=== PATIENT | male | born 1950 | race Caucasian/White ===

== ENCOUNTER → 2018-02-02 | Outpatient (CLI) | payer MEDICARE, OTHER ==
[~2018-02-02] MED LIST: ACTOS 45MG45 MG/TAB PO; ALDACTONE 25MG25 MG PO; ANDRO GEL TOP; ASPIRIN E.C.325 MG PO; CENTRUM SILVER1 TA1 PO; DITROPAN XL 5MG5 MG PO; FERROUS SU325 MG/TAB PO; FLOMAX 0.40.4 MG/CAP PO; FOLIC ACID PO; LIPITOR20 MG PO; LYRICA75 MG PO; MOEXIPRIL PO; TRAMADOL50 MG PO; TRICOR 48MG48 MG PO; TRICOR145 MG PO; VITAMIN C250250 MG PO
== END ==
LOC: COL.LAB 15:30
DX: Z01.812 Encounter for preprocedural laboratory examination (principal)

== ENCOUNTER 2018-02-16 04:40 | Emergency (ER) | payer MEDICARE, OTHER ==
[~2018-02-16] VITALS: Ht 188 cm; Wt 118.6 kg
[2018-02-16 05:10] LABS: COLLECTION METHOD CLEAN CATCH
[2018-02-16 05:19] LABS: PH 6 (5-8); SQUAMOUS EPITHELIAL None Seen /hpf; URINE APPEARANCE Cloudy; URINE BACTERIA Many /hpf; URINE BILIRUBIN Negative (NEGATIVE); URINE BLOOD 2+ (NEGATIVE); URINE COLOR Yellow; URINE GLUCOSE Negative (NEGATIVE); URINE KETONE Negative (NEGATIVE); URINE LEUKOCYTE ESTERASE 3+ (NEGATIVE); URINE NITRATE Positive (NEGATIVE); URINE PROTEIN(semi-quant) 1+ (NEGATIVE); URINE RBC 20-50 /hpf
[2018-02-16] MEDS ORDERED: HCTZ12.5TAB PO (05:21)
[2018-02-16] MEDS ORDERED: NEURONTIN300 MG/CAP PO (05:21)
[2018-02-16] MEDS ORDERED: PROTONIX 40MG T40 MG PO (05:21)
[2018-02-16] MEDS ORDERED: NAPROSYN500 MG PO (05:21)
[2018-02-16] MEDS ORDERED: UNIVASC15 MG PO (05:22)
[2018-02-16] MEDS ORDERED: COREG 6.256.25 MG/TA PO (05:22)
[2018-02-16] MEDS ORDERED: CIPRO 500MG TA500 MG PO (05:23)
[2018-02-16] MEDS ORDERED: DETROL LA4 PO (05:24)
[2018-02-16] MEDS ORDERED: CELEBREX 200MG200 MG PO (05:24)
[2018-02-16 05:27] LABS: BASO % 0.1 % (0.0-2.0); EOS # 0.1 (0.0-0.7); EOS % 0.4 % (0-4.0); GRAN # 13.3 (1.4-6.5); GRAN % 80.7 % (42.2-75.2); HEMOGLOBIN 11.1 g/dl (13.5-18.0); LYMPH # 1.4 (1.2-3.4); LYMPH % 8.6 % (20.0-51.0); MEAN CELL VOLUME 79 fl (80.0-100.0); MEAN CORPUSCULAR HEMOGLOBIN 27 pg (27.0-31.0); MEAN CORPUSCULAR HGB CONC 34 g/dl (33.0-37.0); MEAN PLATELET VOLUME 10.8 fl (7.4-10.4); MONO # 1.5 (0.1-0.6); MONO % 8.9 % (1.7-9.3); PLATELET COUNT 227 K/mm3 (130-400); RED BLOOD COUNT 4.15 M/mm3 (4.20-5.60); REDCELL DISTRIBUTION WIDTH-CV 15.5 % (11.5-14.5)
[2018-02-16 05:28] LABS: HEMATOCRIT 32.8 % (42.0-52.0)
[2018-02-16 05:39] LABS: ALBUMIN 3.9 gm/dL (3.5-5.0); BILIRUBIN,TOTAL 2.5 mg/dL (0.0-1.0); CALCIUM 9.1 mg/dL (8.4-10.2); CREATININE, serum 1.03 mg/dL (0.66-1.25); POTASSIUM 3.8 mmol/L (3.4-5.0)
[2018-02-16 05:50] LABS: C-REACTIVE PROTEIN 21.1 mg/dL (0.0-0.9)
[2018-02-16] MEDS ORDERED: OMNICEF 300MG300 MG PO ×2 (06:29→06:50)
[2018-02-16 06:49] VITALS: BP 150/72; PULSE 98; TEMP 99.4
[2018-02-18] MEDS ORDERED: MACROBID 1100 MG/CAP PO (23:48)
== END 2018-02-16 07:19 | disposition home or self-care (01) ==
LOC: COL.ER 04:40
PROVIDERS: Emergency Medicine
DX: N39.0 Urinary tract infection, site not specified (principal); E11.9 Type 2 diabetes mellitus without complications; I10 Essential (primary) hypertension; N40.0 Benign prostatic hyperplasia without lower urinary tract symptoms; E78.00 Pure hypercholesterolemia, unspecified; Z87.891 Personal history of nicotine dependence; Z98.890 Other specified postprocedural states; Z79.82 Long term (current) use of aspirin
CPT/HCPCS: A4314; J0696; J7030